=== PATIENT | male | born 2000 | race Caucasian/White ===

== ENCOUNTER 2020-01-31 10:13 | Emergency (ER) | payer BC, SELFPAY ==
[2020-01-31 11:21] VITALS: BP 127/75; PULSE 102; RESP 20; TEMP 37.3; O2SAT 100; BMI 28.7
[2020-01-31 11:25] VITALS: BP 127/75; PULSE 102; RESP 20; TEMP 37.3; O2SAT 100
--- NOTE | 2020-01-31 11:26 | HMH.EDUTC ---
[facility] [place]: Encounter for laboratory testing for COVID-19 virus URI (upper respiratory infection) Qualifiers: URI type: unspecified URI Qualified Code(s): J06.9 - Acute upper respiratory infection, unspecified Disposition: Home, Self-Care Condition on Discharge: Good Instructions: Preventing the Spread of Coronavirus Discharge Instructions, Sore Throat, DI for Fever (Symptom) -- Adult Additional Instructions: *Monitor Temp, Over the counter Motrin or Tylenol as directed/as needed Tylenol every 4 hours and Motrin every 6 hours (as long as your family doctor has told you that you can take it) for fever or pain. and straight to ER if unable to lower temp less than 101.0 after medication given *Warm salt water gargles may help to soothe the throat *Throat Lozenges *Warm fluids like tea with honey may help to soothe the throat *Sleep elevated *Humidifier/Vaporizer Your throat swab was sent for culture. Those results are typically sent to your primary care. Be sure to follow up in 2-3 days with your family doctor/primary care physician if no improvement so they can review those result and treat if necessary. If you don?t have a primary care doctor, I recommend you get one but in the mean time, you will have to return to a walk in clinic Follow up IMMEDIATELY for new or worsening symptoms or no Noticeable improvement over the next 48-72 hours. 911 for difficulty breathing or swallowing You were tested for today for COVID19 your test result should be back in the next 24-48 hours, you may call to the [facility] to see if your test results are back in the next 48 hours [phone] [facility] hours are 9am-9pm You was given a handout with instructions for Self Quarantine and Self isolation for while you wait on test results and what to do if they are positive If you are positive the Health Dept will be contacting you also Prescriptions: Azithromycin [Z-Bebo 250mg Tab] 250 mg PO DIRECTED #6 tab Transmission Status: Pending to [id number] Referrals: Madhu Haskins MD [Primary Care Provider] - As needed Forms: Work/School Release Time of Disposition: 11:31 Medical Decision Making - Reagan Inquiry Pt receiving controlled substance: No Reagan was queried for this patient: No Vital Signs: 01/31/20 11:21 Temperature 99.2 F Temperature Source Oral Pulse Rate [Left] 102 H Respiratory Rate 20 Blood Pressure [Right Arm] 127/75 Blood Pressure Mean [Right Arm] 92 Blood Pressure Source [Right Arm] Automatic Cuff Blood Pressure Position [Right Arm] Sitting 02 Sat by Pulse Oximetry 100 - Lab Data Lab results reviewed: Yes: I reviewed the patient's lab results. Orders (Tests/Meds): ORDERS Category Date Time Status Covid-19 Nasal PCR Sendout [facility] 01/31/20 11:00 [place] [facility] [place] - General Stated complaint: Sore throat, fever, chills Time Seen by Provider: 01/31/20 11:26 Mode of Arrival: Ambulatory Source of Information: Patient Limitations: No Limitations Description of Symptoms (Recalled from Triage Doc. by RN): Covid test symptomatic-sore throat, headache, achy back HEENT Symptoms (Recalled from RN notes): Yes Resp Symptoms (Recalled from RN notes): No Skin Symptoms (Recalled from RN notes): No MS Symptoms (Recalled from RN notes): Yes Functional Status (Recalled from RN notes): wnl - History of Present Illness Provider Complaint: Mother wanted to get teen checked State that he woke up this morning with body aches, fever, chills, headache and sore throat State that she checked his temp and it was 101.5 State that she give him some medication and it came down but he still complained of not feeling well and she was worried and wanted to get him tested for COVID - Related Data Previous Rx's Medication Instructions Recorded Azithromycin [Z-Bebo 250mg Tab] 250 mg PO DIRECTED #6 tab 01/31/20 Allergies Allergy/AdvReac Type Severity Reaction Status Date
[2020-01-31 19:24] LABS: UTC Strep Screen (Rapid) Negative (Negative)
[2020-01-31 19:25] LABS: UTC Influenza A Antigen Negative (Negative); UTC Influenza B Antigen Negative (Negative)
[2020-02-01 12:55] LABS: Covid-19 Nasal PCR Sendout Lex Not Detected
== END 2020-01-31 11:35 | disposition home or self-care (01) ==
PROVIDERS: Emergency Provider Nurse Practitioner; PCP Family Medicine
DX: Z20.828 Contact with and (suspected) exposure to other viral communicable diseases (principal); R50.9 Fever, unspecified; R51.9 Headache, unspecified
CPT/HCPCS: 87804; 87880; 99202; U0004

== ENCOUNTER 2020-05-24 18:09 | Emergency (ER) | payer BC, SELFPAY ==
[2020-05-24 18:38] VITALS: BP 149/85; PULSE 86; RESP 16; TEMP 36.8; O2SAT 98; BMI 27.5
--- NOTE | 2020-05-24 19:06 | HMH.EDUTC ---
[facility] [place] Clinical Impression: Thoracic back pain Qualifiers: Chronicity: acute Back pain laterality: midline Qualified Code(s): M54.6 - Pain in thoracic spine Disposition: Home, Self-Care Condition on Discharge: Good Instructions: DI for Thoracic Back Pain, Thoracic Back Pain Additional Instructions: Go home and rest. It would be best if you rested tomorrow too. No heavy lifting. No twisting. Take the oral medications as directed. The muscle relaxer (robaxin) will make you drowsy, so don't drive or operate heavy machinery after taking it. Follow up with your regular doctor. GO TO THE ER FOR ANY WORSENING SYMPTOMS OR CONCERN, ESPECIALLY BOWEL OR BLADDER ISSUES, SADDLE AREA NUMBNESS, FEVER, ETC Bad tableReferrals: PCP,No [Primary Care Provider] - Forms: Work/School Release Time of Disposition: 19:17 Medical Decision Making - Medical Records Medical records reviewed: No: I reviewed the patient's medical records. - Reagan Inquiry Pt receiving controlled substance: No Vital Signs: 05/24/20 18:38 05/24/20 19:22 Temperature 98.3 F 98.2 F Temperature Source Oral Oral Pulse Rate 80 Pulse Rate [Right] 86 Respiratory Rate 16 16 Blood Pressure 132/70 Blood Pressure [Right Radial Artery] 149/85 H Blood Pressure Mean [Right Radial Artery] 106 Blood Pressure Source Automatic Cuff Blood Pressure Source [Right Radial Artery] Automatic Cuff Blood Pressure Position Sitting Blood Pressure Position [Right Radial Artery] Sitting 02 Sat by Pulse Oximetry 98 Oxygen Delivery Method Room Air Room Air [facility] [place] HPI - General Stated complaint: back pain Time Seen by Provider: 05/24/20 19:06 Mode of Arrival: Ambulatory Source of Information: Patient Limitations: No Limitations Description of Symptoms (Recalled from Triage Doc. by RN): pt c/o back pain HEENT Symptoms (Recalled from RN notes): No Resp Symptoms (Recalled from RN notes): No Skin Symptoms (Recalled from RN notes): No MS Symptoms (Recalled from RN notes): Yes Functional Status (Recalled from RN notes): na - History of Present Illness Provider Complaint: He states that for the past 2 days he has had middle back pain. He thinks that he has pulled a muscle. - Related Data Previous Rx's Medication Instructions Recorded Azithromycin [Z-Bebo 250mg Tab] 250 mg PO DIRECTED #6 tab 01/31/20 Ibuprofen [Ibuprofen 800mg 800 mg PO Q8HP PRN #30 tab 05/24/20 Tablet] methocarbamoL [Robaxin 750mg Tab] 750 mg PO BIDP PRN #30 tab 05/24/20 Allergies Allergy/AdvReac Type Severity Reaction Status Date / Time No Known Allergies Allergy Unverified 02/11/17 15:09 - Worker's Comp Is this a Worker's Comp case?: No H History - Hepatitis A Screen Drug use history?: No High risk sexual behaviors?: No History of sexually transmitted infection?: No Currently employed?: No Childcare worker?: No Do you have indoor plumbing?: Yes Do you have electricity?: Yes Attestation statement:: This patient has been screened for Hepatitis A risk factors. I have reviewed the patient's past medical history: Yes ROS Obtained: Yes All systems reviewed & no additional complaints - Constitutional Constitutional: Denies chills, Denies fever(s) - Eyes Eyes: Denies eye discharge - ENT Ears, Nose, Mouth, and Throat: Denies dizziness, Denies otalgia, Denies sore throat - Cardiovascular Cardiovascular: Denies chest pain - Respiratory Respiratory: Denies chest congestion, Denies cough - Musculoskeletal Musculoskeletal: Reports as per HPI - Integumentary/Breasts Skin/Breast: Denies redness, Denies rash, Denies wounds - Neurologic Neurologic: Denies headache(s), Denies tingling/numbness/burning sensations Physical Exam - General General appearance: alert, in no apparent distress - Head Head exam: atraumatic, normocephalic, normal inspection - Eye Eye exam: Present: normal appearance, PERRL, EOMI - ENT ENT exam
[2020-05-24 19:22] VITALS: BP 132/70; PULSE 80; RESP 16; TEMP 36.8; O2SAT 98
== END 2020-05-24 19:22 | disposition home or self-care (01) ==
PROVIDERS: Emergency Provider Nurse Practitioner Family
DX: M54.6 Pain in thoracic spine (principal); R03.0 Elevated blood-pressure reading, without diagnosis of hypertension
CPT/HCPCS: 99202; G0463

== ENCOUNTER 2021-03-20 16:53 | Emergency (ER) | payer BC, SELFPAY ==
--- NOTE | 2021-03-20 17:02 | XR_ITS ---
PROCEDURE INFORMATION: Exam: XR Right Knee Exam date and time: 03/20/2021 5:02 PM Age: 21 years old Clinical indication: Injury or trauma; Fall; Blunt trauma; Right; Injury date: 03/19/2021; Injury details: Patient fell forward on to knee today; Additional info: Anterior knee pain after fall TECHNIQUE: Imaging protocol: XR Right knee. Views: 3 views. Total images: 3 COMPARISON: No relevant prior studies available. FINDINGS: Bones/joints: No fracture. No blastic or lytic lesions. Question minimal joint effusion in the suprapatellar bursa. Joint spaces are well-maintained. Soft tissues: No periostitis or osteolysis. Mild infrapatellar soft tissue swelling. No foreign bodies. Other findings: Normal alignment. IMPRESSION: 1. No acute osseous injuries. 2. Mild infrapatellar soft tissue swelling. No foreign body.
[2021-03-20 17:20] VITALS: BP 143/83; PULSE 86; RESP 19; TEMP 36.8; O2SAT 100; BMI 28.1
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
[2021-03-20 18:52] VITALS: BP 143/83; PULSE 86; RESP 19; TEMP 36.8; O2SAT 100
== END 2021-03-20 18:58 | disposition home or self-care (01) ==
PROVIDERS: Emergency Provider Nurse Practitioner Family; PCP Family Medicine
DX: S80.01XA Contusion of right knee, initial encounter (principal); W01.0XXA Fall on same level from slipping, tripping and stumbling without subsequent striking against object, initial encounter
CPT/HCPCS: 29505; 73562; 99202; G0463

== ENCOUNTER 2021-07-13 20:37 | Emergency (ER) | payer BC, SELFPAY ==
[2021-07-13 20:38] VITALS: BP 152/85; PULSE 88; RESP 17; TEMP 37; O2SAT 99; BMI 28.1
[2021-07-13 21:18] VITALS: BMI 28.1
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
[2021-07-13 23:37] VITALS: BP 126/80; PULSE 82; RESP 17; TEMP 36.9; O2SAT 98
== END 2021-07-13 23:45 | disposition home or self-care (01) ==
PROVIDERS: Emergency Provider Emergency Medicine
DX: S49.91XA Unspecified injury of right shoulder and upper arm, initial encounter (principal); V86.55XA Driver of 3- or 4- wheeled all-terrain vehicle (ATV) injured in nontraffic accident, initial encounter; Y92.488 Other paved roadways as the place of occurrence of the external cause
CPT/HCPCS: 71045; 72170; 73010; 73030; 73060; 73080; 99283

== ENCOUNTER → 2021-07-19 16:07 | Outpatient (CLI) | payer BC, SELFPAY ==
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
== END ==
PROVIDERS: Visit Provider Nurse Practitioner Family
DX: S49.91XD Unspecified injury of right shoulder and upper arm, subsequent encounter (principal)
CPT/HCPCS: 73221

== ENCOUNTER 2022-02-18 10:43 | Emergency (ER) | payer BC, SELFPAY ==
--- NOTE | 2022-02-18 12:22 | EXP.UTC ---
Discharge Plan Disposition Patient Disposition: Home, Self-Care Condition: Good Prescriptions Prescriptions: New methylprednisolone 4 mg Tablets,Dose Pack 4 mg PO DIRECTED Qty: 21 0RF tfwqsujkxbrszxd-zrupoypls-ZO [Bromfed DM] 2-30-10 mg/5 mL Syrup 5 ml PO Q6H PRN (Reason: Cough) Qty: 240 0RF amoxicillin-pot clavulanate 875-125 mg Tablet 1 tab PO Q12H Qty: 20 0RF No Action ibuprofen 800 MG tablet 800 mg PO Q8HP PRN (Reason: Moderate Pain) Qty: 30 0RF Referrals Follow up/Referrals: Provider,Referral, MD [Primary Care Provider] - See instructions Activity Restrictions/Add. Instructions Additional Instructions/Restrictions: Drink plenty of fluids. Take tylenol or ibuprofen for pain or fever. Take the medications as directed. Follow up with your regular doctor. GO TO THE ER FOR ANY WORSENING SYMPTOMS Clinical Impressions Clinical Impression: Strep throat Stand Alone Forms Stand Alone Forms: Work/School Release Instructions Patient Instructions: Strep Throat, DI for Strep Throat Discharge ED Provider: Jose Franks [facility] General Stated complaint: Sore throat,Congestion,Cough Time Seen by Provider: 02/18/22 12:22 History of Present Illness Provider Complaint: He states that for the past 2 days he has had a sore throat, chills and fever. He states that he has felt very bad and feels like he has strep throat. Related Data Previous Rx's Medication Instructions Recorded ibuprofen 800 mg tablet 800 mg PO Q8HP PRN Moderate Pain 03/20/21 #30 tabs amoxicillin 875 mg-potassium 1 tab PO Q12H #20 tabs 02/18/22 clavulanate 125 mg tablet ljretvjltkkbrxq-cnewtzysyboffsu-HT 5 ml PO Q6H PRN Cough #240 mL 02/18/22 2 mg-30 mg-10 mg/5 mL oral syrup (Bromfed DM) methylprednisolone 4 mg tablets in 4 mg PO DIRECTED #21 tabs 02/18/22 a dose pack Allergies Allergy/AdvReac Type Severity Reaction Status Date / Time No Known Allergies Allergy Verified 02/18/22 12:36 [facility] Disclaimer: The information contained in this section may have been updated after the patient was seen, as this information can be updated by other users. Social History Smoking Status: Never smoker alcohol intake: never current occupational status: employed Travel in the last 8 weeks: None ROS Obtained: Yes All systems reviewed & no additional complaints except as documented Constitutional Constitutional: Reports chills and Reports fever(s) Eyes Eyes: Denies eye discharge ENT Ears, Nose, Mouth, and Throat: Reports as per HPI Cardiovascular Cardiovascular: Denies chest pain Respiratory Respiratory: Denies chest congestion and Reports cough Gastrointestinal Gastrointestingal: Reports nausea; Denies abdominal pain, constipation, cramping, diarrhea or vomiting Musculoskeletal Musculoskeletal: Denies arthralgias Integumentary/Breasts Skin/Breast: Denies rash Neurologic Neurologic: Denies paresthesias Physical Exam General General appearance: alert and in no apparent distress Head Head exam: atraumatic, normocephalic and normal inspection Eye Eye exam: Present normal appearance, PERRL and EOMI ENT ENT exam: Present mucous membranes moist and normal external ear exam Expanded ENT Exam TM/Canal exam: Bilateral TM: erythema and bulging Nose exam: Absent sinus tenderness Mouth exam: Present normal external inspection; Absent drooling Teeth exam: Present normal inspection Throat exam: Present tonsillar erythema, tonsillomegaly and tonsillar exudate Neck Neck exam: Present normal inspection, full ROM and trachea midline; Absent tenderness, meningismus or lymphadenopathy Chest Chest inspection: Present normal inspection and symmetric chest wall rise; Absent tenderness Respiratory Respiratory exam: Present normal lung sounds bilaterally; Absent respiratory distress or stridor Cardiovascular Cardiovascular exam: Present regula
[2022-02-18 12:34] VITALS: BP 135/82; PULSE 113; RESP 16; TEMP 37; O2SAT 97; BMI 25.0
[2022-02-18 12:34] LABS: UTC Influenza A Antigen Negative (Negative); UTC Influenza B Antigen Negative (Negative); UTC Strep Screen (Rapid) Positive (Negative)
[2022-02-18 13:18] VITALS: BP 135/82; PULSE 113; RESP 16; TEMP 37
== END 2022-02-18 13:19 | disposition home or self-care (01) ==
PROVIDERS: Emergency Provider Nurse Practitioner Family
DX: J02.0 Streptococcal pharyngitis (principal)
CPT/HCPCS: 87804; 87880; 96372; 99212; G0463

== ENCOUNTER 2022-10-20 10:14 | Emergency (ER) | payer BC, SELFPAY ==
[2022-10-20 10:14] VITALS: BP 140/90; PULSE 79; RESP 18; TEMP 36.7; O2SAT 98; BMI 23.7
--- NOTE | 2022-10-20 10:26 | EXP.UTC ---
Discharge Plan Disposition Patient Disposition: Home, Self-Care Condition: Good Prescriptions Prescriptions: New triamcinolone acetonide 0.1 % cream 1 applic topical BID PRN (Reason: itching) Qty: 30 0RF methylprednisolone 4 mg Tablets,Dose Pack 4 mg PO DIRECTED Qty: 21 0RF No Action ibuprofen 800 MG tablet 800 mg PO Q8HP PRN (Reason: Moderate Pain) Qty: 30 0RF methylprednisolone 4 mg Tablets,Dose Pack 4 mg PO DIRECTED Qty: 21 0RF mskeldonwcnbzai-iqfdxadoo-UA [Bromfed DM] 2-30-10 mg/5 mL Syrup 5 ml PO Q6H PRN (Reason: Cough) Qty: 240 0RF amoxicillin-pot clavulanate 875-125 mg Tablet 1 tab PO Q12H Qty: 20 0RF Referrals Follow up/Referrals: Provider,Referral, MD [Primary Care Provider] - See instructions Activity Restrictions/Add. Instructions Additional Instructions/Restrictions: Try to identify and avoid contact with the offending substance. Don't start the oral steroids until tomorrow. Take over the counter diphenhydramine (benedryl) regularly for the next few days. It will make you drowsy, so don't drive or operate heavy machinery after taking it. Don't put the topical steroids (triamcinolone) on your face or your groin. Follow up with your regular doctor. GO TO THE ER FOR ANY WORSENING SYMPTOMS OR CONCERNS Clinical Impressions Clinical Impression: Contact dermatitis Instructions Patient Instructions: DI for Contact Dermatitis, Triamcinolone Topical, Methylprednisolone, Dexamethasone Injection Discharge ED Provider: Jose Franks [facility] General Stated complaint: rash Time Seen by Provider: 10/20/22 10:26 History of Present Illness Provider Complaint: He states that for the past 2 weeks he has had a worsening itchy rash on his face, arms, hands and lower legs. He was exposed to poison gini before his symptoms began. He has a history of being very sensitive to poison gini. Related Data Previous Rx's Medication Instructions Recorded ibuprofen 800 mg tablet 800 mg PO Q8HP PRN Moderate Pain 03/20/21 #30 tabs amoxicillin 875 mg-potassium 1 tab PO Q12H #20 tabs 02/18/22 clavulanate 125 mg tablet zzxdmcjznyygxpb-xnjpcuatgqxmxnc-HY 5 ml PO Q6H PRN Cough #240 mL 02/18/22 2 mg-30 mg-10 mg/5 mL oral syrup (Bromfed DM) methylprednisolone 4 mg tablets in 4 mg PO DIRECTED #21 tabs 02/18/22 a dose pack methylprednisolone 4 mg tablets in 4 mg PO DIRECTED #21 tabs 10/20/22 a dose pack triamcinolone acetonide 0.1 % 1 applic topical BID PRN itching 10/20/22 topical cream #30 grams Allergies Allergy/AdvReac Type Severity Reaction Status Date / Time No Known Allergies Allergy Verified 02/18/22 12:36 [facility] Disclaimer: The information contained in this section may have been updated after the patient was seen, as this information can be updated by other users. Social History (Updated 02/19/22 @ 21:48 by oJse Franks APRN) Smoking Status: Never smoker alcohol intake: never current occupational status: employed Travel in the last 8 weeks: None ROS Obtained: Yes All systems reviewed & no additional complaints except as documented Constitutional Constitutional: Denies chills and Denies fever(s) Eyes Eyes: Denies eye discharge ENT Ears, Nose, Mouth, and Throat: Denies dizziness, Denies otalgia and Denies sore throat Cardiovascular Cardiovascular: Denies chest pain Respiratory Respiratory: Denies shortness of breath, Denies chest congestion, Denies cough, Denies stridor and Denies wheezing Gastrointestinal Gastrointestingal: Denies nausea or vomiting Musculoskeletal Musculoskeletal: Reports system reviewed and no additional complaints, except as documented and Denies arthralgias Integumentary/Breasts Skin/Breast: Reports as per HPI and Reports rash Neurologic Neurologic: Denies dizziness and Denies paresthesias Allergic/Immunologic Allergic/Immunologic: Denies wheezing Physical Exam General General appearance: alert
[2022-10-20 11:00] VITALS: BP 140/90; PULSE 79; RESP 18; TEMP 36.7; O2SAT 98
== END 2022-10-20 11:08 | disposition home or self-care (01) ==
PROVIDERS: Emergency Provider Nurse Practitioner Family
DX: L23.7 Allergic contact dermatitis due to plants, except food (principal); W60.XXXA Contact with nonvenomous plant thorns and spines and sharp leaves, initial encounter
CPT/HCPCS: 96372; 99212; 99214; G0463

== ENCOUNTER 2024-01-31 18:37 | Emergency (ER) | payer BC, SELFPAY ==
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
--- OUTSIDE RECORDS SUMMARY | 2024-01-31 18:43 | XMS_ITS | Encounter Summary ---
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 No answer. Lvm. Disposition: -Attempted to contact TM. No answer. -Interviewer: Mayela Matthews 09/07/2021, 11:18 AM documented in this encounter Plan of Treatment Not on file documented as of this encounter Visit Diagnoses Not on filedocumented in this encounter Care Teams Bookmobile Driver Relationship Specialty Start Date End Date Provider, [place] [address] PCP - General Kitchen Lead 04/07/20 documented as of this encounter
--- OUTSIDE RECORDS SUMMARY | 2024-01-31 18:43 | XMS_ITS | Encounter Summary ---
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 Prior to providing result pt nameand confirmed. Alexandro Adam 2000 Workday ID: [id number] Shift: 2nd [phone] Last day worked: 09-03-2021 Pt notified of result from RT-PCR for SARS Co-V2 test performed on 09-06-2021 Result: POSITIVE Symptom onset date: 09-04-2021 Currently symptoms have: improved Fever: not in last 24 hours Vaccinated: No. Previous covid positive: Yes, describe: Pt notified of positive result. Instructed on home isolation/avoid contact with others/CDC guidelines, advised on OTC meds to manage symptoms. Advised to seek medical care with worsening, to ED if needed. If f/u telehealth scheduled advised to call [phone] for appt. If scheduled for antigen test, advised on location, procedure, date of test, and time of arrival. documented in this encounter Plan of Treatment Not on file documented as of this encounter Visit Diagnoses Not on filedocumented in this encounter Care Teams Forestry Supervisor Relationship Specialty Start Date End Date Provider, [place] [address] PCP - General Butt Welder 04/07/20 documented as of this encounter
--- OUTSIDE RECORDS SUMMARY | 2024-01-31 18:43 | XMS_ITS | Clinical Summary ---
Author Organization [facility] Address [address] [place] [address] Phone [email or web address] [email or web address] Care Team Providers Care American Indian Studies Professor Name Role Phone Provider, No Primary Care Provider Unavailabl e Allergies No known active allergies Medications No known medications Active Problems No known active problems Social History Tobacco Use Types Packs/Day Years Used Date Smoking Tobacco: Every Day E-Cigarettes Smokeless Tobacco: Never Comments:vape Intimate Partner Violence Answer Date R ecorded Insults You Not on file 06/09/2020 Threatens You Not on file 06/09/2020 Screams at You Not on file 06/09/2020 Physically Hurt Not on file 06/09/2020 Intimate Partner Violence Score Not on file 06/09/2020 Depression Answer Date Recorded PHQ Total Score Not on file 08/17/2022 Stress Answer Date Recorded Stress in your Life Not on file 12/29/2023 Dealing with Stress 3 12/29/2023 Sex and Gender Information Value Date Recorded Sex Assigned at Not on file 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 Gender Identity Not on file Sexual Orientation Not on file Last Filed Vital Signs Vital Sign Reading Time Taken Comments Blood Pressure 120/78 12/22/2023 2:34 PM EDT Pulse 86 12/22/2023 2:34 PM EDT Temperature 36.4 ??C (97.6 ??F) 12/22/2023 2:34 PM ED T Respiratory Rate 16 12/22/2023 2:34 PM EDT Oxygen Saturation 97% 02/12/2023 11:28 AM EST Inhaled Oxygen Concentration - - Weight 93.4 kg (206 lb) 12/22/2023 2:34 PM EDT Height 190.5 cm (6' 3 ) 12/22/2023 2:34 PM EDT Body Mass Index 25.75 12/22/2023 2:34 PM EDT Plan of Treatment Health Maintenance Due Date Last Done Comments Dental Cleaning/Exam 2000 HIV Screening 2000 Hepatitis C Screening 2000 Pneumococcal: Ped (0 to 5 Yrs) and At-Risk Member (6 to 64 Yrs) (1 of 2 - PPSV23 or PCV20) 07/06/2001 05/11/2001, 2000, 2000 Tetanus (Tdap or Td) Immunization 02/10/2011 Tetanus Diphtheria and Pertussis Immunization (6 - Tdap) 02/10/2011 09/24/2006, 03/23/2004, 08/11/2001, Additional history exists Hep B Infection Screening - Surface Antigen 02/10/2018 Annual Preventive Exam 03/17/2020 03/17/2019 Covid-19 Immunization ( season) 2023 Influenza Immunization (#1) 2023 02/0 06/2018, 12/15/2013, 12/23/2012 HIB Immunization Completed 08/11/2001, , 2000, Additional history exists Hepatitis B Immunization Completed 005, 2000, 2000, Additional history exists Polio Immunization Completed 09/24/2006, 0 03/23/2004, 02/09/2001, Additional history exists Varicella Immunization Completed 09/24/2006, 2001 Hepatitis A Immunization Completed 02/20/2010, 0802/2006 HPV Immunization Completed 05/20/2012, 12/21/2011 Meningococcal Immunization Aged Out N o longer eligible based on patient's age to complete this topic Insurance #58 [place] [address] OPT OUT NO COPAY NB Care Teams American Indian Studies Professor Relationship Specialty Start Date End Date Provider, CAMELIA Suarez [id number] PCP - General Glass Processing Worker 04/07/20
--- OUTSIDE RECORDS SUMMARY | 2024-01-31 18:43 | XMS_ITS | Encounter Summary ---
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 TM states that he felt likehe had eaten something bad and caused him to vomit, while at work yesterday. Has had some stomach discomfort since. No fever, chills, sweats, coughing, or sinus issues. No diarrhea. TM states his engineering group manager made him leave and call nurse line. TM states he had covid about 3 weeks ago. No new exposures to covid. TM will RTW 10/03/21 without any further testing for covid. If abdominal pain worsens, go to ER, jacqueline. if he develops any appendicitis symptoms, which we discussed. Security called and badge activated. documented in this encounter Plan of Treatment Not on file documented as of this encounter Visit Diagnoses Not on filedocumented in this encounter Care Teams Sewing Demonstrator Relationship Specialty Start Date End Date [place], [place] [address] PCP - General Bridge Crane Operator 04/07/20 documented as of this encounter
--- OUTSIDE RECORDS SUMMARY | 2024-01-31 18:43 | XMS_ITS | Encounter Summary ---
Author Organization [facility] Address [address] [place] [address] Phone [email or web address] [email or web address] Care Team Providers Care Shear Assembler Name Role Phone Provider, No Primary Care Provider Unavailabl e Encounter Details Date Type Department Care Team ([facility] Contact Info) Description 01/31/2021 Telephone [facility] [address] [place] [address] Chance Jesus, JONEL Social History Tobacco Use Types Packs/Day Years Used Date Smoking Tobacco: Never Smokeless Tobacco: Never Intimate Partner Violence Answer Date R ecorded Insults You Not on file 06/09/2020 Threatens You Not on file 06/09/2020 Screams at You Not on file 06/09/2020 Physically Hurt Not on file 06/09/2020 Intimate Partner Violence Score Not on file 06/09/2020 Depression Answer Date Recorded PHQ-9 Total Score 0 04/07/2020 Stress Answer Date Recorded Stress in your Life 0 04/04/2020 Dealing with Stress Not on file 04/04/2020 Sex and Gender Information Value Date Recorded Sex Assigned at Not on file 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 Alexandro Adam Date of : 2000 6 digit Workday ID: [id number] Badge# (if no workday): NA Contact number: Is the TM on site at the time of the call: No. 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 no Do you have any household members who work on site at [facility] [facility]? -No Type of mask worn by TM: Disposable Vaccine Status: Has TM been vaccinated?: No. TM does not plan to be vaccinated. Information for Testing/contact tracing purposes: Date of : 2000 County of residence: [address] [facility] [address] Ethnicity: Race: Black Last 4 digits of social security #: [phone] E-mail address: [email or web address] Symptom info: Do you currently have, or have you had in the last 3 days any of the following symptoms? Significant: New loss of taste or smell Major: None Minor: Chills, Congestion, Headache and Muscle pain/body aches Symptom Onset Date: 01/27/21 Was TM a DATP participant?: No Is TM confirmed or presumptive: Confirmed Test type: Nasopharyngeal Solaris PCR. Was TM tested onsite or offsite: On site Date of covid test: 01/30/21 Date resulted: 01/30/21 -Did TM have symptoms? Yes. Symptom start date: 01/27/21. Number of significant symptoms: 1. Numberof major symptoms: 0. Number of minor symptoms: 5. -Reason for delayed reporting if applicable: N/A. -Have you had a repeat exposure to a confirmed COVID case in the last 14 days? No Day 9 provider tele health visit: 02/05/21 1. What processes/jobs did you do over the last days at work while considered infectious? (Days at work within 48 hours of onset of symptoms or test date): - Can't remember which jobs he completed 2. Entrance(s) used: -[place] 2-right side entrance 3. Cafeteria used: -No 4. Where do you eat lunch?: -at his break table 5. Where do you break?: -at his break table 6. Do you smoke at work? Where?: -No 7. Any meetings/training in the last 2 days at work? -No 8. Do you wear a mask at all times if not eating/drinking? (if no, list when not worn) See mask type listed above: -Yes. 9. Are you required to wear a face shield for your job duties?: -Yes. 10. Are there barriers in place where necessary, such as break tables etc.?: -Yes. 11. Do you have a history of community and/or household exposure to a presumptive or Laboratory confirmed COVID-19 case within 14 days prior to onset of symptoms or positive COVID-19 case? -No. 12. In the last 14 days prior to the onset of your symptoms or positive test for COVID-19, have youhad an exposure at work to a presumptive or laboratory confirmed case of COVID-19?: -No 13. In the last 14 days prior to onset of symptoms, have you attended social gatherings with othersoutside your household such as bars, weddings, picnics, rastafarian, etc.? If yes, did you practice social distancing and wear a face mask? -Yes: Description: Concert , Did TM wear mask?:No and Able to social distance?: No 14. Have you traveled outside of your state/country in the 14 days prior to onset of symptoms or positive test? -No 15. Do you have any family members who attend or work at the [facility] [employer] that you have been in contact with during the contact tracing period?: -No 16. Do you have any non-household family members who work at [facility] that you have been in contact with during the contact tracing period? -No 17. Can you identify any co-worker you were in close contact with while at work during the contact tracing period?: -No 18. Can you identify any close contacts that include other [facility] employees outside of work? (Community events, sports, transportation, family events, social gatherings, rastafarian, etc.): -No Notes: Called TM to confirm and release his positive covid results. TM reports he has not had any exposure to his knowledge. Disposition: -TM scheduled for tele health with provider. -Administrative leave. -Advised TM to call the nurse line at [phone] as needed. -TM provided with the nurse line e-mail address and advised to send all appropriate documentation. -TM is positive for covid. -Power BI updated to match current status. -TM was sent standardized e-mail from the covid nurse line e-mail address detailing directions and info for all paperwork needed, upcoming testing, and appointments. Test Reason (Select all that apply): -No test required at this time. - Interview performed by: Chance Jesus RN on 01/31/2021. ATOR BEARER SYSTEMS documented in this encounter Plan of Treatment Not on file documented as of this encounter Visit Diagnoses Not on filedocumented in this encounter Care Teams Shear Assembler Relationship Specialty Start Date End Date Provider, CAMELIA Suarez [address] PCP - General Fleet Technician 04/07/20 documented as of this encounter
--- OUTSIDE RECORDS SUMMARY | 2024-01-31 18:43 | XMS_ITS | Encounter Summary ---
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 No answer. Left message to call us back. TM just tested positive for covid 09/06/21. Highly unlikely, he would have covid again this quick. If tested for symptoms, needs to see outside provider for further evaluation and treatment. Wouldnot repeat covid test. documented in this encounter Plan of Treatment Not on file documented as of this encounter Visit Diagnoses Not on filedocumented in this encounter Care Teams Aircraft Dispatcher Relationship Specialty Start Date End Date Provider, Gricelda [place] [address] PCP - General Surveillance Specialist 04/07/20 documented as of this encounter
--- OUTSIDE RECORDS SUMMARY | 2024-01-31 18:43 | XMS_ITS | Encounter Summary ---
Author Organization [facility] Address [address] [place] [address] Phone [email or web address] [email or web address] Care Team Providers Care Accounts Supervisor Name Role Phone Provider, No Primary Care Provider Unavailabl e Reason for Visit * Reason Comments Return to Work / Duty Testsed POS for Co vid-19 on 01/30/21 Encounter Details Date Type Department Care Team (Latest Contact Info) Description 02/05/2021 3:30 PM EST Telemedicine [facility] [address] [place] [address] Madhu Iglesias MD [address] [place] [address] Encounter for other administrative examinations (Primary Dx); COVID-19 Social History Tobacco Use Types Packs/Day Years [...] on file 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 TM consented to the telehealth process at onset of visit by responding to the following statements: I understand that telehealth has certain limitations regarding diagnosis and treatment of medical conditions, and I consent to participate in a telehealth visit today. Response: Yes I acknowledge that I can receive a copy of the [employer] Notice of Privacy Practices from the [employer] website (www.[email or web address]) and that my protected health information may only be shared as outlined in that Notice. Response: Yes I understand that this Consent for Treatment is valid from today's date until: the provider-patientrelationship is terminated; a new healthcare labor union business representative is appointed; or I revoke consent. Response: Yes Are you currently in the state of [place]? Yes Are you in a private space, or a space where you feel comfortable discussing your health care? Yes [id number] [facility]30[facility] Subjective: Alexandro Adam is a 20 y.o. male. Chief Complaint: Chief Complaint Patient presents with ??? Return to Work / Duty Testsed POS for Covid-19 on 01/30/21 History Reviewed: The following portions of the patient's chart were reviewed in this encounter and updated as appropriate: Meds Problems Yara HERNANDEZ calls for RTW clearance after testing POS for Covid-19 on 01/30/21. First developed sys on 01/28/21 of H/A. HD has not contacted TM. No fever. Still has some body aches and diarrhea. No SOB orsignificant cough. Will finish up 10 day quarantine on 02/07/21 and RTW on 02/08/21 Review of Systems Constitutional: Body aches Gastrointestinal: Positive for diarrhea. Visit Vitals Smoking Status Never Smoker Objective: Physical Exam Vitals reviewed: Deferred due to telehealth visit. Assessment/Plan: Diagnoses and all orders for this visit: Encounter for other administrative examinations COVID-19 Patient Instructions Finish out 10 day quarantine on 02/07/21 RTW on 02/08/21 F/U as needed CASTING MACHINE OPERATOR documented in this encounter Plan of Treatment Not on file documented as of this encounter Visit Diagnoses Diagnosis Encounter for other administrative examinations- Primary COVID-19 documented in this encounter Care Teams Accounts Supervisor Relationship Specialty Start Date End Date Provider, CAMELIA Suarez [id number] PCP - General Rail Manager 04/07/20 documented as of this encounter
--- OUTSIDE RECORDS SUMMARY | 2024-01-31 18:43 | XMS_ITS | Encounter Summary ---
Author Organization [facility] Address [address] [place] [address] Phone CareEverywhereSuppor [email or web address] Care Team Providers Care Fast Food Shift Lead Name Role Phone Provider, No Primary Care Provider Unavailabl e Reason for Visit * Reason Onset Date Comments Return to Work / Duty 09/14/2021 Encounter Details Date Type Department Care Team ([facility] st Contact Info) Description 09/14/2021 Telephone Stacey Bolanosid Care Support [address] [facility]. 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 Have you had any new or recent exposure to covid positive/presumptive positive? No CHECK ALL PREVIOUS NOTES FOR EXPOSURES!! Have you or any members within your household been quarantined by Health Department? No Are there any pending covid tests or symptomatic family members within household? No Have you been fever free for the past 24 hours? Yes NOTES: Alexandro Adam informed that due to end quar they are no longer eligible for administrative leave. If additional time is required off work, you will need to speak with your client representative regarding coverage of that time. If wallpaper remover steam has 4hrs or more left in their shift, per Stacey's protocol, they are expected to return to work or contact their local HR rep regarding coverage if additional time is needed. produce service team member verbalized understanding and agreement Yes (note: Team members that test positive cannot return to work until day 11 and beyond) TM verbalized understanding and agreement of Administrative Leave closure: Yes (any additional notes here) Disposition: Return to work per [employer] guidelines End of MELANI-HR date: 09/14/21 Time: 2359 Tm advised to call back with updates, changes or as needed. 09/14/2021 documented in this encounter Plan of Treatment Not on file documented as of this encounter Visit Diagnoses Not on filedocumented in this encounter Care Teams Fast Food Shift Lead Relationship Specialty Start Date End Date Provider, CAMELIA Suarez [address] PCP - General Marine Operations Coordinator 04/07/20 documented as of this encounter
--- OUTSIDE RECORDS SUMMARY | 2024-01-31 18:43 | XMS_ITS | Encounter Summary ---
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 No answer. Left message to call us back. documented in this encounter Plan of Treatment Not on file documented as of this encounter Visit Diagnoses Not on filedocumented in this encounter Care Teams Parasitologist Relationship Specialty Start Date End Date Provider, [place] [address] PCP - General Office Spec 04/07/20 documented as of this encounter
--- OUTSIDE RECORDS SUMMARY | 2024-01-31 18:43 | XMS_ITS | Encounter Summary ---
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 No answer, left VM requesting a return call to the nurse line. END SPINNING OPERATOR documented in this encounter Plan of Treatment Not on file documented as of this encounter Visit Diagnoses Not on filedocumented in this encounter Care Teams Fertilizer Mixer Relationship Specialty Start Date End Date Provider, [place] [address] PCP - General Computer Discovery Teacher 04/07/20 documented as of this encounter
--- OUTSIDE RECORDS SUMMARY | 2024-01-31 18:44 | XMS_ITS | Encounter Summary ---
Author Organization [facility] Address [address] [place] [address] Phone [email or web address] [email or web address] Care Team Providers Care Fermenter Name Role Phone Unavailable Primary Care Provider Unavailabl e Reason for Visit * Reason Onset Date Comments Screening-Infectious Disease 02/14/2020 - t est result offsite Encounter Details Date Type Department Care Team ([facility] st Contact Info) Description 02/14/2020 Telephone [facility] [address] [place] [address] Beverly Walters RN [address] [place] [address] Social History Tobacco Use Types Packs/Day Years Used Date Smoking Tobacco: Never Smokeless Tobacco: Never Sex and Gender Information Value Date Recorded Sex Assigned at Not on file Legal Sex Male 8:29 AM RESIN SHAVER Gender Identity Not on file Sexual Orientation Not on file documented as of this encounter Miscellaneous Notes * Telephone Encounter - Beverly Walters RN - 02/14/2020 7:09 AM EST Images from the original note were not included. TM provides his negative test results from offsite test in 02/02/20 email to jane cano- see below. JONEL COHN N SHAVER documented in this encounter Plan of Treatment Not on file documented as of this encounter Visit Diagnoses Not on filedocumented in this encounter
--- OUTSIDE RECORDS SUMMARY | 2024-01-31 18:44 | XMS_ITS | Encounter Summary ---
Author Organization [facility] Address [address] [place] [address] Phone [email or web address] [email or web address] Care Team Providers Care Director Of Cardiac Cath Lab Name Role Phone Provider, No Primary Care Provider Unavailabl e Reason for Visit * Reason Comments [facility] covid-1 9 testing today Encounter Details Date Type Department Care Team (Latest Contact Info) Description 01/30/2021 4:30 PM EST Telemedicine [facility] [address] [place] [address] Madhu Iglesias MD [address] [place] [address] Acute nonintractable headache, unspecified headache type (Primary Dx); Sore throat; Chills; Body aches Social History Tobacco Use Types Packs/Day Years [...] on file 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 Gender Identity Not on file Sexual Orientation Not on file documented as of this encounter Patient Instructions * Patient Instructions* Madhu Iglesias MD - 01/30/2021 4:30 PM EST Covid-19 tested today If result is NEG, reassess sys and , if taste and smell are completely gone, consider retest If not, RTW-nurse level STUDY OBSERVER STUDY OBSERVER documented in this encounter Progress Notes * Madhu Iglesias MD - 01/30/2021 4:30 PM EST TELEHEALTH VISIT: Today's visit was [...] I can receive a copy of the [employer] Notice of Privacy Practices from the [employer] website (www.[email or web address]) and that my protected health information may only be shared as outlined in that Notice. Response: Yes I understand that this Consent for Treatment is valid from today's date until: the provider-patientrelationship is terminated; a new healthcare shipping services sales representative is appointed; or I revoke consent. Response: Yes Are you currently in the state of [place]? Yes Are you in a private space, or a space where you feel comfortable discussing your health care? Yes Subjective: Alexandro Adam is a 20 y.o. male. Chief Complaint: Chief Complaint Patient presents with ??? [facility] covid-19 testing today History Reviewed: The following portions of the patient's chart were reviewed in this encounter and updated as appropriate: Meds Problems Provider screening after covid-19 testing. Exposure to covid-19 positive or presumptive (pending test) individual? No Have you tested positive for covid-19? No Received covid-19 vaccine? (if yes include carry out clerk, date of doses) no, not interested Received flu vaccine this year? no Most recent covidSHIELD onsite screening saliva test and result? 11/30/21 and negative Symptoms check below: Cough? No SOA or difficulty breathing? No Fever or chills? Yes-chills Fatigue? No Body aches? Yes Sore throat? Yes Congestion or runny nose? Yes-congestion New loss of taste or smell? Yes-loss of taste Headache? Yes Nausea or vomiting? No Diarrhea? No Symptom onset? 01/27/21 Review of Systems Constitutional: Positive for chills. Body aches HENT: Positive for congestion and sore throat. Loss of taste Neurological: Positive for headaches. Visit Vitals Smoking Status Never Smoker Objective: Physical Exam Vitals reviewed: Deferred due to telehealth visit. Assessment/Plan: Diagnoses and all orders for this visit: Acute nonintractable headache, unspecified headache type Sore throat Chills Body aches Patient Instructions Covid-19 tested today If result is NEG, reassess sys and , if taste and smell are completely gone, consider retest If not, RTW-nurse level STUDY OBSERVER documented in this encounter Plan of Treatment Not on file documented as of this encounter Visit Diagnoses Diagnosis Acute nonintractable headache, unspecified headache type- Primary Sore throat Acute pharyngitis Chills Chills (without fever) Body aches Generalized pain documented in this encounter Care Teams Director Of Cardiac Cath Lab Relationship Specialty Start Date End Date Provider, CAMELIA Suarez [address] PCP - General Barrel Turner 04/07/20 documented as of this encounter
--- OUTSIDE RECORDS SUMMARY | 2024-01-31 18:44 | XMS_ITS | Encounter Summary ---
Author Organization [facility] Address [address] [place] [address] Phone [email or web address] [email or web address] Care Team Providers Care Speech Language Pathologist Assistant Name Role Phone Unavailable Primary Care Provider Unavailabl e Reason for Visit * Reason Onset Date Comments Screening-Infectious Disease 02/02/2020 Cov id Call Encounter Details Date Type Department Care Team ([facility] Contact Info) Description 02/02/2020 Telephone [facility] [address] [place] [address] Roberta Barcenas RN [address] [place] [address] Social History Tobacco Use Types Packs/Day Years Used Date Smoking Tobacco: Never Smokeless Tobacco: Never Sex and Gender Information Value Date Recorded Sex Assigned at Not on file 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 TM had results of his test. No answer, left VM for TM to call back. FABRIZIO RN STANT ASSOCIATE FULL PROFESSOR documented in this encounter Plan of Treatment Not on file documented as of this encounter Visit Diagnoses Not on filedocumented in this encounter
--- OUTSIDE RECORDS SUMMARY | 2024-01-31 18:44 | XMS_ITS | Encounter Summary ---
Author Organization [facility] Address [address] [place] [address] Phone CareEverywhereSuppor Care Team Providers Care Hand Box Coverer Name Role Phone Unavailable Primary Care Provider Unavailabl e Reason for Visit * Reason Onset Date Comments Screening-Infectious Disease 02/01/2020 New Call Encounter Details Date Type Department Care Team ([facility] Contact Info) Description 02/01/2020 Telephone [facility] [address] [place] [address] Roberta Barcenas RN [address] [place] [address] Social History Tobacco Use Types Packs/Day Years Used Date Smoking Tobacco: Never Smokeless Tobacco: Never Sex and Gender Information Value Date Recorded Sex Assigned at Not on file 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 Other Members in household work here: No Type of mask worn by TM: Surgical 1. Do you currently have, or have you had in the last 3 days any of the following symptoms? Symptoms: Fever > 100.4, Sore throat, Chills or muscle pain, Congestion or runny nose, Headache and alittle loss of taste yesterday. Symptom Onset Date: 01/30 Seen by Outside Provider: No 2. Have you ever been tested or Confirmed positive for covid? -Yes Date Tested: 01/30, Result/Details: pending, [facility] 3. In the last 14 days have you come in close contact (within 6 feet and for at least 15 minutes) with a confirmed or presumptive COVID-19 case (presumptive is defined as close contact with a person exhibiting signs/symptoms of fever, persistent cough or shortness of breath, compatible new loss of taste or smell, or 2 or more minor CDC symptoms COVID-19 without alternative diagnosis who has been tested or awaiting testing/evaluation)? This does not include asymptomatic individuals seeking testing. - No 4. In the last 14 days have you traveled outside of your country, state or province (other than foryour normal work commute and essential activities like travel to pharmacy, grocery shopping, doctor's office, to provide home care for others, etc.) requiring you to self-quarantine on your return asper your country, state or province travel restriction executive orders? - No 5. Do you have an underlying health condition for which your doctor is recommending self-quarantine? - No Notes from call: TM called to report symptoms. TM went and took a test at [facility] yesterday. TM verbalized understanding and agreement of MELANI Leave Expectations: Yes Disposition: Covid-19 test pending from off site, Administrative leave Next step: Follow up for test results of TM off site Next step date: 02/02 Anticipated RTW date: 02/02 Tm advised to call back with updates, changes or as needed. -Interviewer: Roberta Barcenas 02/01/2020 DROMAT WORKER documented in this encounter Plan of Treatment Not on file documented as of this encounter Visit Diagnoses Not on filedocumented in this encounter
--- OUTSIDE RECORDS SUMMARY | 2024-01-31 18:44 | XMS_ITS | Encounter Summary ---
Author Organization [facility] Address [address] [place] [id number] Phone [email or web address] [email or web address] Care Team Providers Care Feltmaker Name Role Phone Unavailable Primary Care Provider Unavailabl e Encounter Details Date Type Department Care Team ([facility] Contact Info) Description [facility]/03[facility]2020 [facility] [address] [facility] [address] [place] [phone] Sharri Serrato RN [address] [place] [address] Social History Tobacco Use Types Packs/Day Years Used Date Smoking Tobacco: Never Smokeless Tobacco: Never Sex and Gender Information Value Date Recorded Sex Assigned at Not on file 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 If additional time is required off work, you will need [facility] coverage of that time. TM verbalized understanding and agreement of MELANI Leave closure: Yes TM reports: Symptoms improving Has TM had recent exposure to covid positive/presumptive positive? No Are there any members of the household who have been told to Quarantine by Health Department? No Are there any pending covid tests or symptomatic family members within household? No Has TM be fever free within the past 24 hours? 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 02/04/20 on 1st shift. Tm advised to call back with updates, changes or as needed. -Interviewer: Sharri Serrato 02/03/2020 NT SERVICE CONSULTANT documented in this encounter Plan of Treatment Not on file documented as of this encounter Visit Diagnoses Not on filedocumented in this encounter
--- OUTSIDE RECORDS SUMMARY | 2024-01-31 18:44 | XMS_ITS | Encounter Summary ---
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 male on 01/30/2021. Alexandro Adam Date of : 2000 6 digit Workday ID: [id number] Badge# (if no workday): NA Contact number: Is the TM on site at the time of the call: No. 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 no Do you have any household members who work on site at [facility]? -No Type of mask worn by TM: Disposable Vaccine Status: Has TM been vaccinated?: No. TM does not plan to be vaccinated. Information for Testing/contact tracing purposes: Date of : 2000 County of residence: [address] [place] [id number] Ethnicity: Race: Black Last 4 digits of social security #: [email or web address] E-mail address: [email or web address] Symptom info: Do you currently have, or have you had in the last 3 days any of the following symptoms? Significant: New loss of taste or smell Major: New or persistent cough Minor: Sore throat, Chills, Congestion, Headache and Muscle pain/body aches Symptom Onset Date: 01/28/21 Reason for delayed reporting if applicable: N/A. Have you been seen by an outside provider for these symptoms?: No 1. Have you ever tested positive for covid? -No 2. Last shield test: 01/23/21 and it was negative 3. In the last 14 days have you been in close contact (within 6 feet and for at least 15 minutes) with a confirmed or presumptive COVID-19 case ? This does not include asymptomatic individuals seeking testing. -No known exposure 4. In the last 14 days have you traveled outside of your state or country? - No 5. Do you have any underlying health conditions? - No Notes from call: TM called to report he was experiencing symptoms he felt were Covid related. TM has not had any exposures to his knowledge. TM verbalized understanding and agreement of MELANI Leave Expectations: Yes Disposition: -TM scheduled for tele health with provider. -Covid-19 test pending from on site. -Administrative leave. -Advised TM to call the nurse line at [phone] as needed. -TM provided with the nurse line e-mail address and advised to send all appropriate documentation. -Power BI updated to match current status. -TM was sent standardized e-mail from the [facility] nurse line e-mail address detailing directions and info for all paperwork needed, upcoming testing, and appointments. -Tm advised to call back with updates, changes or as needed. Test reason from this call (Select all that apply): -TM is symptomatic and needs an initial test. -Interviewer: Chance Jesus RN 01/30/2021, 10:16 AM ENGINEER documented in this encounter Plan of Treatment Not on file documented as of this encounter Visit Diagnoses Not on filedocumented in this encounter Care Teams Fitter Placer Relationship Specialty Start Date End Date Provider, Gricelda AVILAWCAMELIA Macdonald [id number] PCP - General Trench Shovel Operator 04/07/20 documented as of this encounter
[2024-01-31 18:50] VITALS: BP 148/91; PULSE 75; RESP 19; TEMP 36.7; O2SAT 100; BMI 25.9
--- NOTE | 2024-01-31 19:05 | ED_ITS ---
Discharge Plan Disposition Patient Disposition: Home, Self-Care Condition: Good Prescriptions Prescriptions: New doxycycline hyclate 100 mg capsule 100 mg PO BID 10 Days Qty: 20 0RF mupirocin 2 % ointment 1 applic topical TID Qty: 22 0RF Referrals Follow up/Referrals: Provider,Referral, MD [Primary Care Provider] - See instructions Activity Restrictions/Add. Instructions Additional Instructions/Restrictions: Take medication as prescribed. Keep site clean and dry. Avoid aggressive manicuring, nail biting, or picking at hangnail. If symptoms persist or worsen, return to clinic/PCP. Clinical Impressions Clinical Impression: Acute paronychia of right thumb Instructions Patient Instructions: DI for Paronychia Print Language Print Language: Cymro Discharge ED Provider: Tawny Cesar [facility] General Stated complaint: Right thumb red,swollen,no injury Mode of Arrival: Ambulatory Source of Information: Patient and Parent(s) Limitations: No Limitations Time Seen by Provider: 01/31/24 19:04 Description of Symptoms (Recalled from Triage Doc. by RN): PATIENT C/O SWELLING TO RIGHT THUMB BELOW THUMBNAIL X 2 DAYS, NO KNOWN INJURY HEENT Symptoms (Recalled from RN notes): No Resp Symptoms (Recalled from RN notes): No Skin Symptoms (Recalled from RN notes): No MS Symptoms (Recalled from RN notes): No Functional Status (Recalled from RN notes): WNL History of Present Illness Provider Complaint: pt reports that he picks at his nails a lot. He states that he started having redness and swelling around his right thumb 2 days ago and today the swelling and pain worsened. Related Data Previous Rx's ?Medication ?Instructions ?Recorded doxycycline hyclate 100 mg capsule 100 mg PO BID 10 days #20 caps 01/31/24 mupirocin 2 % topical ointment 1 applic topical TID #22 grams 01/31/24 Allergies Allergy/AdvReac Type Severity Reaction Status Date / Time No Known Allergies Allergy Verified 02/18/22 12:36 Worker's Comp Is this a Worker's Comp case?: No [facility] Disclaimer: The information contained in this section may have been updated after the patient was seen, as this information can be updated by other users. Medical History (Updated 01/31/24 @ 19:26 by Tawny Cesar APRN) No significant past medical history Social History (Updated 02/19/22 @ 21:48 by Jose Franks APRN) Smoking Status: Never smoker alcohol intake: never current occupational status: employed Travel in the last 8 weeks: None ROS Obtained: Yes All systems reviewed & no additional complaints except as documented Constitutional Constitutional: Reports system reviewed and no additional complaints, except as documented Eyes Eyes: Reports system reviewed and no additional complaints, except as documented ENT Ears, Nose, Mouth, and Throat: Reports system reviewed and no additional complaints, except as documented Cardiovascular Cardiovascular: Reports system reviewed and no additional complaints, except as documented Respiratory Respiratory: Reports system reviewed and no additional complaints, except as documented Gastrointestinal Gastrointestingal: Reports system reviewed and no additional complaints, except as documented Genitourinary Male Genitourinary: Reports system reviewed and no additional complaints, except as documented Musculoskeletal Musculoskeletal: Reports system reviewed and no additional complaints, except as documented Integumentary/Breasts Skin/Breast: Reports system reviewed and no additional complaints, except as documented, Reports as per HPI, Reports redness and Reports skin swelling Neurologic Neurologic: Reports system reviewed and no additional complaints, except as documented Endocrine Endocrine: Reports system reviewed and no additional complaints, except as documented Hematologic/Lymphatic Henatologic/Lymphatic: Reports system reviewed and no additional complaints, except as documented Allergic/Immunologic Allergic/Immunologic: Reports system reviewed and no additional complaints, except as documented Physical Exam General General appearance: alert and in no apparent distress Head Head exam: atraumatic and normocephalic Eye Eye exam: Present normal appearance ENT ENT exam: Present normal exam and normal oropharynx Neck Neck exam: Present normal inspection Chest Chest inspection: Present normal inspection and symmetric chest wall rise Respiratory Respiratory exam: Present normal lung sounds bilaterally Cardiovascular Cardiovascular exam: Present regular rate and normal rhythm Abdominal Exam Abdominal exam: Present soft Extremities Exam Extremities exam: Present tenderness, normal capillary refill and edema Expanded Upper Extremity Exam Right: Shoulder exam: Present normal inspection Arm exam: Present normal inspection Elbow exam: Present normal inspection Forearm/Wrist exam: Present normal inspection Hand exam: Present tenderness, swelling and erythema Hand L/R back image: 2 1. area of redness and pus filled swelling Back Exam Back exam: Present normal inspection Neurological Exam Neurological exam: Present oriented X3 Psychiatric Psychiatric exam: Present normal affect and normal mood Skin Skin exam: Present warm, dry and intact Lymphatic Lymphatic Findings: no adenopathy Medical Decision Making Medical Records Screening: Per USPSTF and CDC recommendations, given the prevalence of disease in our region, it is our hospital?s policy to screen for HIV and viral Hepatitis for all patients aged 18 and over and those with ongoing risk factors. Reagan Inquiry Pt receiving controlled substance: No Reagan was queried for this patient: No Vital Signs: 01/31/24 18:50 Temperature 98.1 F Temperature Source Oral Pulse Rate [Left Brachial] 75 Respiratory Rate 19 Blood Pressure [Left Arm] 148/91 H Blood Pressure Mean [Left Arm] 110 Blood Pressure Source [Left Arm] Automatic Cuff Blood Pressure Position [Left Arm] Sitting 02 Sat by Pulse Oximetry 100 Oxygen Delivery Method Room Air Procedures Abscess I/D Site: other (right thumb) Side (if applicable): right Sedation/analgesia: none Technique: needle aspiration (5/8 needle used to puncture site and pus expressed from area. Area cleaned with alcohol prior to procedure) Irrigation: No Packing used?: none Complications: pain
[2024-01-31 19:29] VITALS: BP 148/91; PULSE 75; RESP 19; TEMP 36.7; O2SAT 100
== END 2024-01-31 19:31 | disposition home or self-care (01) ==
PROVIDERS: Emergency Provider Nurse Practitioner Family
DX: L03.011 Cellulitis of right finger (principal); M79.641 Pain in right hand
CPT/HCPCS: 26010; 99212; G0381